=== PATIENT | male | born 1970 | race Caucasian/White ===

== ENCOUNTER 2019-10-25 05:48 | Day surgery (SDC) | payer MEDICARE, BC ==
--- NOTE | 2019-10-24 22:05 | Pre-Procedure Note/Attestation ---
Pre-Procedure Note/Attestation Complete Prior to Procedure Planned Procedure: bilateral Procedure Narrative: Bilateral Myringotomy and ear tube placement Indications for Procedure Pre-Operative Diagnosis: Bilateral serous otitis media with retraction pocket right TM Attestation I attest that I discussed the nature of the procedure; its benefits; risks and complications; and alternatives (and the risks and benefits of such alternatives ), prior to the procedure, with the patient (or the patient's legal technical sales representative). I attest that, if there was a reasonable possibility of needing a blood transfusion, the patient (or the patient's legal technical sales representative) was given the [facility] standardized written summary, pursuant to the Rocco Toby Blood Safety Act ([place] Health and Safety Code # 1645, as amended). I attest that I re-evaluated the patient just prior to the surgery and that there has been no change in the patient's H&P, Jay Harrison MD Oct 24, 2019 22:05
--- NOTE | 2019-10-24 22:07 | Discharge Instructions ---
Discharge Instructions Discharge Instructions Follow up with: next week at Dr. Harrison's office Diet: regular Resume Normal Activity?: Yes Pneumonia Vaccine: pt refused vaccine Influenza Vaccine (Aug to Jan): pt refused vaccine Return to Work/School on: Oct 25, 2019 Special Instructions 2 drops Ciprofloxin BID x 5 days to each ear. For Surgical Patients May shower: Yes For Congestive Heart Failure Reminder Report to your physician any weight gain of 5 pounds or more in one week. Jay Harrison MD Oct 24, 2019 22:07
--- NOTE | 2019-10-24 22:10 | Brief Operative Note ---
Immediate Post Operative Note Operative Note Chief Complaint: Pressure in ears Pre-op Diagnosis: Bilateral serous otitis media with retraction pocket right TM Procedure: Bilateral myringotomy and ear tubes Post-op Diagnosis: same as pre-op Surgeon: Jay Harrison Etl Manager: none Additional Surgeons: none Anesthesiologist: Hillary VILLATORO Anesthesia: MAC Specimen: none Complications: none Condition: stable Fluids: D5LR Estimated Blood Loss: minimal Drains: none Packing: none Implant(s) used?: Yes - aguero gromets with nitegral tab Jay Harrison MD Oct 24, 2019 22:10
[2019-10-25] VITALS (9 sets, daily range): BP systolic 107–124; BP diastolic 54–76
[~2019-10-25] VITALS: Ht 172.7 cm; Wt 70.3 kg
--- NOTE | 2019-10-25 01:45 | Pre-op HX & Phy Repo 2 SIG ---
DATE OF ADMISSION: 10/25/2019 HISTORY OF PRESENT ILLNESS: The patient is a 49-year-old male, who is being admitted for outpatient myringotomy and ear tube for chronic serous otitis media. He has had audiogram showing flat tympanograms, worse in the right ear. PAST MEDICAL HISTORY: Depression, HIV, attention deficit. PAST SURGICAL HISTORY: He did have ear tubes as a child twice and once as an adult, had a hernia as an adult as well. MEDICATIONS: Include Rexulti, Vyvanse, and Trintellix. SOCIAL HISTORY: cCgarette smoker one to nine cigarettes a day. Occasional wide alcohol use. Single, no children. PHYSICAL EXAMINATION: The patient is 5 feet 8 inches, 155 pounds, BMI 23.57. When I last saw him on 09/27/2019, his blood pressure of 120/80, temperature 98.4, heart rate 72, respiratory rate 14. Head: normocephalic Nose: WNL Neck: no nodes Ears: retracted right TM and no light reflex left TM Heart: norm S1-2, no S3-4, RRR Chest: clear to A/p Extremities: grossly normal : deferred: done by PMD and not indicated for this procedure. Neuro: grossly normal ASSESSMENT: Chronic serous otitis media with retraction pocket in the right ear. PLAN: Bilateral myringotomy and ear tube/gromet placement as an outpatient. We discussed the risks, benefits, and alternatives. All questions were entertained and answered when the patient was in the office. Jay Harrison M.D. DR: PATRICIA JOB#: [id number] CC: PEDRO
[2019-10-25] MEDS ORDERED: VYVANSE60 MG ORAL (06:51)
[2019-10-25] MEDS ORDERED: TRINTELLIX PO (06:53)
[2019-10-25] MEDS ORDERED: ADDERAL20 MG ORAL (06:54)
[2019-10-25] MEDS ORDERED: [UNRECOGNIZED DRUG - OTHER] PO (06:54)
[2019-10-25] MEDS ORDERED: ceFAZolin sod 1 GM in D5W 55 ML IV ONE (07:15)
[2019-10-25] MEDS ORDERED: Midazolam 2mg/2ml Inj ONE ×2 (07:19→07:51)
[2019-10-25] MEDS ORDERED: fentaNYL 100 mcg/2 mL IV ONE (07:19)
[2019-10-25] MEDS ORDERED: Neosporin Oint Ud Pkt TOPIC ONE (07:23)
[2019-10-25] MEDS ORDERED: Lidocaine 1% 10mg/ml/Epi 0.005mg/ml 30ml vial INJ ONE (07:23)
[2019-10-25] MEDS ORDERED: CIPRODEX LEFT EAR SCH (07:24)
[2019-10-25] MEDS ORDERED: NS Irrig 1000ml ONE (07:35)
[2019-10-25] MEDS ORDERED: Sterile Water Irrig 1000ml IRRIG ONE (07:35)
[2019-10-25] MEDS ORDERED: LR 1000ml ONE (07:35)
--- NOTE | 2019-10-25 08:12 | Immediate Post-Op Evaluation ---
Immediate Post-Op Evalulation Immediate Post-Op Evalulation Procedure: Bilateral ear tubes Date of Evaluation: Oct 25, 2019 Time of Evaluation: 08:12 Blood Pressure Systolic: 112 Blood Pressure Diastolic: 71 Pulse Rate: 58 Respiratory Rate: 14 O2 Sat by Pulse Oximetry: 98 Temperature (Fahrenheit): 97.5 Nausea: No Vomiting: No Complications none Patient Status: awake, reacts, patent Hydration Status: adequate Drug: ancef Given Within 1 Hr of Incision: Yes Time Given: 07:35 Hillary Levy CRNA Oct 25, 2019 08:12
[2019-10-25] MEDS ORDERED: Metoclopramide 10mg/2ml Inj IVP PRN (08:15)
[2019-10-25] MEDS ORDERED: HYDROcodone/Acetamin 5/325 tab ORAL PRN (08:15)
[2019-10-25] MEDS ORDERED: HYDROmorphone 1mg/ml Carpuject SUBQ PRN (08:15)
[2019-10-25] MEDS ORDERED: Lidocaine 1% MPF 10mg/ml 5ml ONE (08:19)
[2019-10-25] MEDS ORDERED: Dexamethasone 4mg/ml vial ONE (08:19)
[2019-10-25] MEDS ORDERED: Propofol 200mg/20ml IV ONE (08:19)
--- NOTE | 2019-10-25 09:40 | Immediate Post-Op Evaluation ---
Immediate Post-Op Evalulation Immediate Post-Op Evalulation Procedure: Bilateral ear tubes Date of Evaluation: Oct 25, 2019 Time of Evaluation: 08:15 IV Fluids: 600 Blood Pressure Systolic: 117 Blood Pressure Diastolic: 75 Pulse Rate: 65 Respiratory Rate: 14 O2 Sat by Pulse Oximetry: 98 Nausea: No Vomiting: No Complications none Patient Status: awake, reacts, patent Hydration Status: adequate Drug: ancef Given Within 1 Hr of Incision: Yes Time Given: 07:35 Hillary Levy CRNA Oct 25, 2019 09:40
--- NOTE | 2019-10-25 09:43 | Anethesia Preoperative Eval ---
Anesthesia Pre-op PMH/ROS General Date of Evaluation: Oct 25, 2019 Time of Evaluation: 07:30 Anesthesiologist: maia ASA Score: ASA 3 Mallampati Score Class I : Soft palate, uvula, fauces, pillars visible Class II: Soft palate, uvula, fauces visible Class III: Soft palate, base of uvula visible Class IV: Only hard plate visible Mallampati Classification: Class II Surgeon: Christy Diagnosis: otitis media chronic Surgical Procedure: B Myringotomy; ear tubes Anesthesia History: none Family History: no anesthesia problems Allergies: Coded Allergies: No Known Allergies (Unverified , 10/24/19) Medications: see eMAR Patient NPO?: Yes NPO Date: Oct 25, 2019 NPO Time: 00:01 Past Medical History Cardiovascular: Denies: HTN, CAD, [place], valve dz, arrhythmia, other Pulmonary: Denies: asthma, COPD, KIRTI, other Gastrointestinal/Genitourinary: Denies: GERD, CRI, ESRD, other Neurologic/Psychiatric: Reports: depression/anxiety Endocrine: Denies: DM, hypothyroidism, steroids, other HEENT: Denies: cataract (L), cataract (R), glaucoma, LEVELOCK (L), LEVELOCK (R), other Hematology/Immune: Denies: anemia, DVT, bleeding disorder, other Musculoskeletal/Integumentary: Denies: OA, RA, DJD, DDD, edema, other Other: other - HIV PSxH Narrative: myringotomy Anesthesia Pre-op Phys. Exam Physician Exam Last Vital Signs Date Time Temp Pulse Resp B/P (MAP) Pulse Ox O2 Delivery O2 Flow Rate FiO2 10/25/19 09:20 63 20 118/76 98 Room Air 10/25/19 08:50 97.2 Constitutional: NAD Neurologic: CN 2-12 intact Cardiovascular: RRR Respiratory: CTA Gastrointestinal: S/NT/ND Airway Exam Mallampati Classification 2 Mallampati Score: Class II MO: full ROM: full Teeth: intact Dentures: no upper, no lower Anesthesia Pre-op A/P Studies Pre-op Studies: EKG - SR Risk Assessment & Plan Assessment: denies changes in health Plan: mac Status Change Before Surgery: No Pre-Antibiotics Drug: ancf Given Within 1 Hr of Incision: Yes Time Given: 07:35 Hillary Levy CRNA Oct 25, 2019 09:43
--- NOTE | 2019-10-25 09:45 | 48 Hour Post Anesthesia Eval ---
Post Anesthesia Evaluation Procedure: Bilateral ear tubes Date of Evaluation: Oct 25, 2019 Time of Evaluation: 09:45 Blood Pressure Systolic: 118 0: 54 Pulse Rate: 65 Respiratory Rate: 14 O2 Sat by Pulse Oximetry: 98 Airway: patent Nausea: No Vomiting: No Hydration Status: adequate Mental Status/LOC: patient returned to baseline Follow-up Care/Observations: na Post-Anesthesia Complications: none Follow-up care needed: N/A Hillary Levy CRNA Oct 25, 2019 09:45
--- NOTE | 2019-10-25 16:45 | Operative Note - Dictated ---
DATE OF OPERATION: 10/25/2019 SURGEON: Jay Harrison M.D. RECREATION COORDINATOR: None. ANESTHESIOLOGIST: IRVING Thornton. INDICATION FOR SURGERY: Chronic serous otitis media with retraction pocket in the right ear. The patient has had tubes three times in his life, twice as a child and once as an adult, and continues to have problems. PREOPERATIVE DIAGNOSIS: Chronic serous otitis media with retraction pocket in the right ear. The patient has had tubes three times in his life, twice as a child and once as an adult, and continues to have problems. POSTOPERATIVE DIAGNOSIS: Chronic serous otitis media with retraction pocket in the right ear. The patient has had tubes three times in his life, twice as a child and once as an adult, and continues to have problems. FINDINGS: Right ear retraction pocket and thin serous ricketts fluid suctioned out. Left ear, no fluid but retracted. PROCEDURE: Bilateral microscopic myringotomy and Quezada grommet placement. TECHNIQUE: The patient was prepped and draped in the usual manner via intravenous sedation. I injected 0.5 mL into either ear after cleaning with alcohol. I then addressed the right ear first via the microscope, cleaned the ear canal. Suctioned clean. Placed a radial incision with the myringotomy knife. This was then followed by placement of the Quezada grommet. Please note that I had already suctioned out the Ricketts thin fluid from the middle ear. I then turned my attention to the left ear. Same pattern of procedure. Alcohol in the air suctioned clean. I then proceeded under direct microscopic vision to make a radial incision with the myringotomy knife. Quezada grommet was placed without difficulty. COUNTS: Sponge and needle count was correct. ESTIMATED BLOOD LOSS: 1 mL. COMPLICATIONS: None. DRAINS: Two Quezada grommets placed. The patient was awake and alert and speaking in the operating room prior to transfer to recovery room where he also was stable 10 minutes later. Jay Harrison M.D. DR: HASEEB JOB#: [id number] CC:
== END 2019-10-25 09:30 | disposition home or self-care (01) ==
LOC: SUR 05:48
DX: H65.21 Chronic serous otitis media, right ear (principal); F32.9 Major depressive disorder, single episode, unspecified; B20 Human immunodeficiency virus [HIV] disease; Z79.899 Other long term (current) drug therapy; F17.210 Nicotine dependence, cigarettes, uncomplicated; F41.9 Anxiety disorder, unspecified
CPT/HCPCS: 69436; J0690; J1100; J2250; J2704; J3010; J7120; 94003; 94150